=== PATIENT | male | born 1945 | race Caucasian/White ===

== ENCOUNTER → 2016-12-29 | Day surgery (SDC) | payer OTHER ==
[~2016-12-29] VITALS: Ht 167.6 cm; Wt 102.0 kg
[~2016-12-29] MED LIST: ACETAMINOPHEN 325 MG TAB PO PRN; ADENOSINE IV SOLN 3 MG/ML 20 ML VIAL ONE; ASPEC81 PO; ATROPINE SULFATE 0.1 MG/ML 5ML SYR IV PRN; CRG125 PO; CZR50 PO; HEPARIN SOD (PORCINE) 1000 UNIT/ML 10 ML VIAL ONE; HYG25 PO; ISOS30TA3 PO; LPT20 PO; MIDAZOLAM HCL 1 MG/ML 2ML VIAL ONE; NITROGLYCERIN 0.4 MG SL PER TAB CHARGE SL PRN; NITROGLYCERIN/D5W 100MCG/ML 20ML SYR ONE; NTRSLP4 SL; NiCARDipine HCL INJ 2.5 MG/ML 10 ML AMP ONE; PLV75 PO; ROSU5TAB9 PO; SODIUM CHLORIDE 0.9% 1000ML 1,000 ML IV SCH; SODIUM CHLORIDE 0.9% 1000ML 250 ML IV PRN
[2016-12-29 07:22] VITALS: Ht 167.6 cm; Wt 102.0 kg
[2016-12-29 07:23] VITALS: BP 169/80; PULSE 55; TEMP 36.6; O2SAT 98
--- NOTE | 2016-12-29 09:04 | History & Physical Bridge Note ---
H&P Re-Evaluation Bridge Note: I have examined the patient, reviewed the History & Physical and in the interval since the performance of the History & Physical I have noted the following changes of clinical significance: No changes noted
[2016-12-29] MEDS: FENTANYL CITRATE INJ 50 MCG/1 ML 2 ML VIAL ONE (09:11)
--- NOTE | 2016-12-29 10:22 | [facility] Post Operative Brief Note ---
Preliminary Procedure Note Procedure Date Dec 29, 2016. Pre-Procedure Diagnosis Angina, Positive Stress Test AUC Score 7 Post-Procedure Diagnosis Moderate CAD Procedure(s) Performed Coronary Angiography, Left Heart Cath, LV Angiography Payable Manager Dr. Chino Akhtar Direct Marketing Executive(s) Marilee Martinez Estimated Blood Loss <15cc Medication(s) Fentanyl (12.5 mcg IV), Heparin (5000u IV), Nicardipine (300mcg intraarterial after sheath insertion), Versed (1mg IV), Lidocaine 1% (local infiltration) Preliminary Findings Right dominant coronary anatomy Patent stents RCA, CX OM LM large, no disease LAD napkin ring type lesion after S1 possibly severe, diffuse distal disease in apical segment 60, 70 serial stenoses. LAD Diagonal second , modest sized with ostial disease LCX large with moderate irregularities RCA modest caliber with narrow distal vasculature LV normal function EF >65% Recommendations management recommendations (FFR of LAD lesion) Specimens None Fluids (cc crystalloids) 75 Anesthesia Start 0922 Stop 0950 Marcos Zhang RN monitor Procedural Complication(s) None Disposition Staff Psychologist Holding/Recovery
--- NOTE | 2016-12-29 10:44 | Procedure Note ---
Post-Mod Sedation Assessment General Date of Moderate Sedation Dec 29, 2016. Vital Signs: Vital Signs Past 12 Hours Date Time Temp Pulse Resp B/P (MAP) Pulse Ox O2 Delivery O2 Flow Rate FiO2 12/29/16 07:23 36.6 55 18 169/80 98 Room Air Review - Discharge Criteria Vital Signs Stable: Yes Alert/Oriented/Conversant: Yes Returned to Baseline Mental St: Yes Nausea Absent/Minimal: Yes Pain/Discomfort/Absent/Minimal: Yes Normal/Baseline Respirations: Yes Active Bleeding?: No Pt Received D/C Instructions: N/A Prescriptions Given: None Specific Proced. D/C Criteria Distal Pulses Present (Cardiac: Yes Groin site assessed-Card Cath: N/A Voided Prior To Discharge: N/A Discharged Patients Adult Escort/Transportation: N/A
--- NOTE | 2016-12-29 11:22 | Cardiac Catheterization ---
Procedure Note Procedure Date Dec 29, 2016. Pre-Procedure Diagnosis Angina, Positive Stress Test, CAD AUC Score 7 Post-Procedure Diagnosis Cardiothoracic Finding (Nonsignificant FFR measurement of proximal LAD stenosis. 0.91.) Procedure(s) Performed Coronary Angiography, Fractional Flow [place] Filler Dr. Alfonso Facilities Specialist(s) Nia Martinez RTR Estimated Blood Loss 20 ml for FFR procedure Medication(s) Heparin, Nicardipine (Intra-arterial), Versed, Adenosine Intra venous adenosine was administered at a dose of 180 micrograms/kilogram per minute for 2 minutes. Summary of Findings Catheterization site: 6 Egyptian glide sheath right radial artery inserted at time of diagnostic procedure by Dr. Chino Akhtar. Indications: Possible significant napkin ring stenosis in proximal LAD noted on diagnostic angiography. The patient was referred by Dr. Akhtar to nm for performance of FFR measurement of the proximal LAD stenosis. He Equipment and protocol: It was 1st attempted to cannulate the left main coronary artery with 6 Egyptian EBU 3.75 and then EBU 4.0 guide catheters. These attempts were unsuccessful. A 6 Egyptian AL 2 guide catheter was then used and tenuously cannulated the left main coronary artery. The [place] J-tip FFR pressure wire pressure wire was calibrated and balanced. IFR was then performed across the LAD stenosis . The IFR measurement was 0.90. Intravenous adenosine was then administered at a dose of 180 micrograms/kilogram per minute for 2 minutes. FFR measurement was performed. The FFR measurement was 0.91. Follow-up angiography of the left coronary artery was then performed with the guidewire in place and then with guidewire withdrawn. At the completion of the procedure the patient was without any cardiac or vascular complaints. He was hemodynamically stable. Hemostasis: Terumo TR band. Complications: None. Conclusions: Nonsignificant FFR measurement of proximal LAD stenosis. Plan: If a right radial approach is used in the future to perform an intervention to the left coronary artery would recommend use of an a AL3 guide catheter. Based on the FFR measurement of 0.91 intervention to the LAD stenosis is not indicated. The patient have continued cardiology follow-up with the [facility] cardiology service. Further recommendations and plans by Dr. Akhtar. Hemodynamics Rest Ao: 150/63/97 mm Hg Final Ao: 177/79/121 mm Hg LV: NA Recommendations Medical therapy and/or Counseling Specimens None Radiation Exposure (mGy) Total of 4094 for both diagnostic and FFR procedure. Contrast (mls) Total of 220 milliliters visit PEG for both procedures. Fluids (cc crystalloids) Total of 125 milliliters for both procedures. Anesthesia Intravenous Versed. Start 10:06. End 10:39. Procedural Complication(s) None Disposition Wardrobe Custodian Holding/Recovery ACC Data Cardiac Status Clinical evaluation leading to the procedure CAD Presntation: Positive Stress Test (Please see Dr. Akhtar's report for further details regarding clinical indications, anginal classification, test results, and diagnostic angiographic results.) Left Ventricular Angiography EF (%): NA Diagnostic Physician's Name: Chino Akhtar M.D. Status: Elective Closure Device Percutaneous Entry Location: Radial Closure Device: Radial Band Recommendations: Medical therapy and/or Counseling Lesion Segment Name: Proximal LAD Culprit Artery: Yes Stenosis Prior to Rx (%): 50 Chronic Total Occlusion: No IVUS: No FFR: Yes (0.91) Pre-Procedure DUSTY Flow: 3 Previously Treated Lesion: No Lesion Complexity: Non-High/Non-C Lesion Length (mm): 2 Thrombus Present: No Bifurcation Lesion: No Guidewire Across Lesion: Yes Guidewire: Stenosis Post-Procedure (%): 50 Post-Procedure DUSTY Flow: 3 Device(s) Deployed: No Intraprocedure Events Significant Dissection: No Perforation: No
--- NOTE | 2016-12-29 13:21 | Discharge Instructions ---
Discharge Instructions Procedure Procedure Date: Dec 29, 2016. Reason for Visit: Abnormal Nuc Stress Test *Dr Akhtar To Do*. Discharge Discharge Date: Dec 29, 2016. Discharge Diagnosis: Stable coronary artery disease Last Recorded Wt (Kilograms): 102 Anesthesia Post Anesthesia Instructions: If you have had General Anesthesia or IV Sedation: * Do not drive today. * Resume driving when surgeon permits. * Do not make important decisions or sign legal documents today. * Call surgeon for: 1. Temperature elevations greater than 101 degrees F. 2. Uncontrollable pain. 3. Excessive bleeding. 4. Persistent nausea and vomiting. 5. Medication intolerance (nausea, vomiting or rash). * For nausea and vomiting use only clear liquids such as: tea, soda, bouillon until nausea subsides, then gradually increase diet as tolerated. * If you have any concerns or questions, call your surgeon's office. If physician is unavailable and it is an emergency, call 911 or go to the nearest emergency room. Instructions Activity Recommendations: limitations as noted below Recommended Home Diet: resume previous diet Allergies: Coded Allergies: No Known Allergies (Unverified , 04/13/14) Follow Up Additional Instructions: ACTIVITY RECOMMENDATIONS: Excess manipulation of the wrist should be avoided for the next 24-48 hours. * No lifting over 2 pounds (approximately a 1/2 gallon of milk) with the utilized arm for 24 hours. * No strenuous activity such as bowling or tennis for 3 days. * Keep the site of the procedure covered with a bandage for 24 hours. *You may shower the day after the procedure. Do not take a tub bath or submerge the puncture site in water for the next 3 days. *Do not operate any motorized equipment for 3 days. SPECIAL CARE INSTRUCTIONS: The site may be slightly bruised and sore following your procedure. Should any of the following occur, contact the Dr. who performed your procedure. 1. Redness/inflammation, swelling, chills, or fever, or colored drainage at procedure site within 3-7 days after your procedure. 2. Coldness, discoloration, ongoing numbness, severe pain, or swelling. Expect mild tingling of hand and tenderness at the puncture site for up to three days. If this persists beyond three days, or other symptoms develop, notify the DrAnurag who performed your procedure. BLEEDING: If the procedure site on your wrist begins to bleed, do not panic 1. Place 1 or 2 fingers firmly just slightly above the insertion site to stop the bleeding. You may be able to feel your pulse as you hold pressure. 2. Lift your finger after 5 minutes to see if the bleeding has stopped. 3. Once the bleeding has stopped, gently wipe the wrist area clean with a bandage. * If the bleeding from your wrist does not stop after 10 minutes, or if there is a large amount of bleeding or spurting, call 911 (do not drive yourself to the hospital). SKIN IRRITATION: * You may experience some redness and/or swelling in the area where radiation was administered. If any skin irritation occurs, please contact your family physician. FOLLOW UP VISIT: Keep any scheduled doctor appointments. Follow-up with: PCP and Nir Gar as scheduled Conrad Marcus Recommendations: Call your doctor if: * Temperature above 101 degrees * Pain not relieved by pain medicine ordered * There is increased drainage or redness from any incision * You have any unanswered questions or concerns. Your Doctors Instructions noted above were prepared by provider Chino Akhtar. Patient Signature Section: Patient Instructions Signature Page Da [place] Patient (or Guardian) Signature/Date: I have read and understand the instructions given to me by my caregivers. Caregiver/RN/Doctor Signature/Date: The above-named patient and/or guardian has received patient instructions on this date. + Original Patient Signature Page (only) stays with chart. Please make copy for patient.
[2016-12-29 13:30] VITALS: BP 160/80; PULSE 54; O2SAT 93
--- NOTE | 2016-12-29 23:48 | CARDIAC CATH REPORT ---
REFERRING: Nir Gar PA-C, and Hermilo Magana MD. PRIMARY CARE PHYSICIAN: Dr. Janie Chavira. PROCEDURE: Left heart catheterization, coronary and LV angiography on 12/29/2016. INDICATIONS: Abnormal stress testing, exertional dyspnea, chest pain. BRIEF CARDIAC HISTORY: The patient is a 71-year-old male, cardiac history of known coronary artery disease with prior coronary intervention in the right coronary in 2000, stenting of the left circumflex and obtuse marginal in 2014 with residual 50% mid LAD stenosis after the first septal branch. The patient most recently has been experiencing increasing symptoms, now class 3 exertional dyspnea, chest discomfort and fatigue. Stress testing done prior to evaluation demonstrated stress-induced inferoapical ischemia per nuclear imaging report. He is referred now for diagnostic imaging. He has not manifested signs or symptoms of congestive heart failure. ACCESS: Right radial artery. CATHETERS: A 6-Haitian long [place] sheath, 5-Haitian brachial 3.5, 5-Haitian straight pigtail. CONTRAST: Nonionic, 109 mL FLUIDS: 75 mL normal saline. SEDATION: Start time was 9:22, stop time was 9:50. Marcos Zhang RN, monitored. MEDICATIONS: The patient received 1 mg IV Versed and 12.5 mcg IV fentanyl. CARDIAC MEDICATIONS: The patient received local lidocaine infiltration at the access site. After central access gained, 5000 units IV heparin was administered, and after intra-arterial sheath was placed, 300 mcg intra-arterial nicardipine was administered. COMPLICATIONS: None. RADIATION EXPOSURE: A total of 4094 milligrays was given for both diagnostic cardiac catheterization and subsequent FFR procedure. RESULTS: CORONARY ANGIOGRAPHY: Note coronary anatomy is right dominant: LEFT MAIN: Left main is very large and bifurcates to give rise to left anterior descending and left circumflex coronaries. There is no disease in the left main. LEFT ANTERIOR DESCENDING: Left anterior descending is type 2 in distribution. It gives rise to a large septal branch and some very small first diagonal branch early in its proximal third. It then gives rise to a modest caliber second diagonal branch at the end of its proximal third. The vessel then courses to terminate at the apex. Within the left anterior descending, there is a discrete napkin ring type stenosis immediately beyond the first septal branch, narrowing the vessel by 50%. The origin of the second diagonal branch is diffusely diseased. The distal left anterior descending has serial stenosis of 50, 60 and 70% in its apical portion. LEFT CIRCUMFLEX: Left circumflex is large in caliber and gives rise to large multi-branching obtuse marginal and 2 small posterolateral branches. There is mild luminal irregularities throughout the left circumflex. Stent to the obtuse margin is widely patent. RIGHT CORONARY ARTERY: Right coronary artery is dominant in distribution, moderate in caliber, gives rise to a SA branch and 2 small right ventricular branches. At the AV groove, it gives rise to a very small posterior descending artery and 2 small posterior ventricular branches. Within the right coronary artery, the stent in the distal right coronary artery is narrowed only by 10% with moderate irregularities throughout the distal and mid right coronary artery. The vessels beyond the AV groove are thin in caliber, but no obstruction defined. LEFT VENTRICULAR ANGIOGRAPHY: Left ventricle was nondilated, ejection fraction was 65%. There is trace mitral insufficiency only. HEMODYNAMICS: Initial aortic pressure 143/68/98. LV 155/6/EDP 22 Final 177/79/ 121 FINAL IMPRESSION: 1. Stable coronary artery disease. 2. Patent stents in the left anterior descending and distal right coronary artery. 3. Stable 50% early mid proximal third of the left anterior descending after first septal branch, identified and defined by FFR today to be nonobstructive with distal vessel disease as described in its apical portion as well as narrowed ostium of modest caliber second diagonal branch. 4. Moderate irregularities left circumflex and right coronary artery. 5. Preserved left ventricular systolic function. 6. Normal left end-diastolic pressure. RECOMMENDATIONS: We will continue medical therapies, discussed in detail with the patient, specifically today. Nitrates will be added to regimen with Imdur 30 mg per day. The patient will be restarted on statin therapy with rosuvastatin 5 mg every other day. MTDD
== END | disposition home or self-care (01) ==
LOC: C.CATH 07:00
PROVIDERS: ATTEND Internal Medicine Cardiovascular Disease
DX: R94.39 Abnormal result of other cardiovascular function study (principal); R94.31 Abnormal electrocardiogram [ECG] [EKG]; I25.9 Chronic ischemic heart disease, unspecified; E78.5 Hyperlipidemia, unspecified; I11.9 Hypertensive heart disease without heart failure; Z95.818 Presence of other cardiac implants and grafts; I10 Essential (primary) hypertension; E66.9 Obesity, unspecified; G47.33 Obstructive sleep apnea (adult) (pediatric); J44.9 Chronic obstructive pulmonary disease, unspecified; K21.9 Gastro-esophageal reflux disease without esophagitis; M19.90 Unspecified osteoarthritis, unspecified site; Z90.49 Acquired absence of other specified parts of digestive tract; Z90.89 Acquired absence of other organs; Z82.49 Family history of ischemic heart disease and other diseases of the circulatory system; Z83.3 Family history of diabetes mellitus; F17.220 Nicotine dependence, chewing tobacco, uncomplicated; Z79.82 Long term (current) use of aspirin